=== PATIENT | male | born 1945 | race Caucasian/White ===

== ENCOUNTER 2020-06-11 11:26 | Day surgery (SDC) | payer MEDICARE ==
[~2020-06-11 11:26] MED LIST: CEFAZOLIN 2 GM/D5W RTU 2 GM/50 ML RTUPB IV PRN; DEXAMETHASONE SOD PHOS INJ 10 MG/1 ML VIAL ONE; FENTANYL CITRATE INJ/PF 100 MCG/2 ML AMPUL ONE; GLYCOPYRROLATE INJ 0.4 MG/2 ML VIAL ONE; LIDOCAINE 2% INJ-PF (100 MG/5 ML) SYRINGE ONE; MIDAZOLAM 2 MG/2 ML INJ ONE; ONDANSETRON HCL INJ/PF 4 MG/2 ML SDV ONE; PROPOFOL INJ 200 MG/20 ML VIAL IV ONE; SUCCINYLCHOLINE CHLORIDE INJ 200 MG/10 ML VIAL ONE
[2020-06-11] MEDS ORDERED: BACITRACIN ZINC OINTMENT 15 GM ONE (12:23)
[2020-06-11] MEDS ORDERED: OXYMETAZOLINE HCL 0.05% NASAL SPRAY 15 ML BOTTLE ONE (12:24)
[2020-06-11] MEDS ORDERED: POVIDONE-IODINE 5% OPH PREP SOLN 30 ML ONE (12:24)
[2020-06-11] MEDS ORDERED: LIDOCAINE 2%/EPINEPHRINE INJ 1.7 ML CARTRIDGE ONE (12:24)
[2020-06-11] MEDS ORDERED: CIPROFLOXACIN HCL/FLUOCINOLONE 0.3%/0.025% OTIC ONE ×2 (14:16→14:32)
[2020-06-11] MEDS ORDERED: MEPERIDINE HCL/PF INJ 25 MG/1 ML DISP.SYRIN ONE (14:37)
--- NOTE | 2020-06-11 15:17 | Operative Report ---
Operative Report-[facility] Operative Report: Date: 11 June 2020 History: 74-year-old male with a right ear canal mass. He underwent an I&D in the clinic about a week and a half ago. Continues with pain and drainage despite oral antibiotics. Presents today for evaluation under anesthesia of the right ear and debridement of the wound. Informed consent was obtained from the patient Pre-operative diagnosis: 1. Right ear mass involving the conchal bowl and external auditory canal. Post operative diagnosis: 1. Right ear mass originating from the conchal bowl and extending anterior inferiorly. 2. Necrotic mass extending beyond the confines of the external auditory canal, right ear 3. Suspicious for squamous cell carcinoma, right ear Procedure: 1. Evaluation under anesthesia using binocular microscopy, right ear 2. Excisional biopsy right ear mass Surgeon: Montana Chin MD, FACS, [facility] Anesthesia: General via endotracheal intubation Procedure: After receiving informed consent from the patient, he was transported to the operating room and placed supine on the operating table. After successful induction by anesthesia, the right was turned superiorly and under binocular microscopy the right ear mass involving the conchal bowl and external auditory canal was injected with 2% lidocaine 100,000 epinephrine. The conchal bowl and external auditory canal were also injected with 2% lidocaine and 100,000 epinephrine. Patient then prepped and draped in sterile fashion. A Council blade was used to make an incision along the inferior aspect of the mass that extended from the conchal bowl into the external auditory canal. Another incision was made superiorly from the conchal bowl to the external auditory ca nal. A duckbill elevator was used to elevate the tissue and at this point necrotic tissue was noted that was extending anteriorly. The overlying tissue was excised and sent for biopsy. There was a cavity noted extending anteriorly filled with friable/necrotic tissue. Multiple biopsies were taken of this tissue. Tissue appeared to be extending beyond the anterior wall of the cartilaginous external auditory canal. The tissue was friable and multiple biopsies were obtained. The tympanic membrane appeared normal. The necrotic tissue did not extend towards the tympanic membrane. Unable to visualize margins of the necrotic tissue. Suspicious for squamous cell carcinoma. The wound was then irrigated with normal saline. Quarter inch iodoform gauze was placed into the cavity and a Merocel pack was placed into the external auditory canal. The Merocel pack was saturated with antibiotic otic drops. The patient was then given to anesthesia who successfully extubated the patient without any complications. Estimated blood loss: Minimal Fluids: 800 mL The patient was then transported to the Post Anesthesia Care Unit in stable condition with spontaneous respiration. No complication.
== END 2020-06-11 15:18 | disposition home or self-care (01) ==
LOC: SC 11:26
PROVIDERS: ATTEND Otolaryngology
DX: C44.222 Squamous cell carcinoma of skin of right ear and external auricular canal (principal); H60.01 Abscess of right external ear; L72.0 Epidermal cyst; H93.11 Tinnitus, right ear; H91.90 Unspecified hearing loss, unspecified ear; Z01.812 Encounter for preprocedural laboratory examination; Z20.828 Contact with and (suspected) exposure to other viral communicable diseases
CPT/HCPCS: 88342 ×2; 88341 ×2; 88305 ×2; 00120; 69105; U0003; J2250; J3490; J3010; J2175; A9270 ×2; J0330; J2405; J2704; J1100; J0690; C9803; 120; 87635; J2001

== ENCOUNTER → 2020-06-23 | Outpatient (CLI) | payer MEDICARE ==
--- NOTE | 2020-06-23 14:28 | RADIOLOGY REPORT (SQ) ---
EXAM DESCRIPTION: CT CHEST WITH IMAGES COMPLETED DATE/TIME: 06/23/2020 1:31 pm REASON FOR STUDY: (C44.222)SQUAMOUS CELL CARCINOMA SKIN/ R EAR AND EXTERNAL AURIC CANAL C44.222 SQU AMOUS CELL CARCINOMA SKIN/ R EAR AND EXTERNAL AUR COMPARISON: None. TECHNIQUE: CT scan of the chest performed using helical scanning technique with dynamic intravenous contrast injection. Images reviewed with lung, soft tissue and bone windows. Reconstructed coronal and sagittal MPR and MIP images reviewed. All images stored on PACS. All CT scanners at this facility use dose modulation, iterative reconstruction, and/or weight based d osing when appropriate to reduce radiation dose to as low as reasonably achievable (ALARA). [facility]: Dose Right [facility]: CareDose [facility]: Dose Right [facility]: Teradose 4D [facility]: snapp.me CONTRAST TYPE AND DOSE: contrast/concentration: Isovue 350.00 mmol/ml; Total Contrast Delivered: 68. 0 ml; Total Saline Delivered: 54.9 ml 68 mL Omnipaque 350- low osmolar. RENAL FUNCTION: Creatinine 0.9 RADIATION DOSE: . LIMITATIONS: None. FINDINGS: LUNGS AND PLEURA: No opacities, nodules, masses. No pneumothorax. No effusions. HILAR AND MEDIASTINAL STRUCTURES: A couple small in nonspecific precarinal nodes are present. The la rger measures 8 mm in short axis. No true hilar or mediastinal adenopathy. HEART AND VASCULAR STRUCTURES: No aneurysm or dissection. No central pulmonary emboli. No pericardi al effusion. HARDWARE: None in the chest. UPPER ABDOMEN: No significant findings. Limited exam. THYROID AND OTHER SOFT TISSUES: No masses. No adenopathy. BONES: No significant finding. OTHER: No other significant finding. IMPRESSION: There is no evidence of metastatic disease in the thorax. TECHNICAL DOCUMENTATION: JOB ID: [id number] Quality ID # [id number]: Final reports with documentation of one or more dose reduction techniques (e.g., Au tomated exposure control, adjustment of the mA and/or kV according to patient size, use of iterative reconstruction technique) 2010 [employer]- All Rights Reserved Reading location - IP/workstation name: [email or web address]
--- NOTE | 2020-06-24 14:20 | RADIOLOGY REPORT (SQ) ---
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 TECHNIQUE: Post IV contrasted scanning from skull base through lung apices with review of bone, soft tissue and lung windows. Reconstructed coronal and sagittal MPR images reviewed. All images stored on PACS. All CT scanners at this facility use dose modulation, iterative reconstruction, and/or weight based d osing when appropriate to reduce radiation dose to as low as reasonably achievable (ALARA). [facility]: Dose Right [facility]: CareDose [facility]: Dose Right [facility]: Teradose 4D [facility]: [employer] CONTRAST TYPE AND DOSE: 68 mL Omnipaque 350- low osmolar. RENAL FUNCTION: Creatinine 0.9. RADIATION DOSE: CT Rad equipment meets quality standard of care and radiation dose reduction techniq ues were employed. CTDIvol: 15.0 - 20.9 mGy. DLP: 1379 mGy-cm. . LIMITATIONS: None. FINDINGS: SOFT TISSUES: Indistinct enhancing soft tissue involving the right external auditory miguel l and extending inferiorly. Overall transverse measurements approximately 2.4 x 2.8 cm and craniocau chaz measurement 3.1 cm. Indistinct poorly defined margins. Enhancing tissue extends to the internal auditory canal but no noticeable soft tissue within the internal canal. No focal bony destruction. SKULL BASE: Intact. MAJOR SALIVARY GLANDS: No solid or cystic masses. No inflammatory changes. LYMPHADENOPATHY: No adenopathy. MUCOSAL MASSES OR ASYMMETRY: No mucosal masses or asymmetry. LARYNX/CORDS: No abnormal findings. VASCULAR STRUCTURES: The major vessels are patent. LUNG APICES: Clear. BONES: Intact. THYROID: Normal size. No masses. PARANASAL SINUSES: Clear. OTHER: No other significant finding. IMPRESSION: INDISTINCT ENHANCING SOFT TISSUE INVOLVING THE RIGHT EXTERNAL AUDITORY CANAL DESCRIBE D CORRESPONDING TO REPORTED SQUAMOUS CELL CARCINOMA. NO FOCAL BONY DESTRUCTION. NO ADENOPATHY. TECHNICAL DOCUMENTATION: JOB ID: [id number] Quality ID # [id number]: Final reports with documentation of one or more dose reduction techniques (e.g., Au tomated exposure control, adjustment of the mA and/or kV according to patient size, use of iterative reconstruction technique) 2010 [employer]- All Rights Reserved Reading location - IP/workstation name: [email or web address]
== END ==
LOC: RAD 11:46
PROVIDERS: ATTEND Otolaryngology
DX: C44.222 Squamous cell carcinoma of skin of right ear and external auricular canal (principal)
CPT/HCPCS: 70480; 70491; 71260; 82565